=== PATIENT | female | born 1945 | race Caucasian/White ===

== ENCOUNTER 2020-11-04 22:28 | Emergency (ER) | payer MEDICARE ==
[~2020-11-04] VITALS: Ht 162.6 cm; Wt 70.3 kg
[2020-11-05 00:04] VITALS: BP 145/65
== END 2020-11-05 00:06 | disposition home or self-care (01) ==
LOC: EDH 22:28
DX: K52.9 Noninfective gastroenteritis and colitis, unspecified (principal); Z20.822 Contact with and (suspected) exposure to COVID-19; I10 Essential (primary) hypertension; E03.9 Hypothyroidism, unspecified
CPT/HCPCS: 87635; 99283; C9803

== ENCOUNTER 2022-07-27 21:41 | Emergency (ER) | payer MEDICARE ==
[~2022-07-27] VITALS: Ht 154.9 cm; Wt 72.1 kg
[2022-07-28 00:20] VITALS: BP 138/82
== END 2022-07-28 00:32 | disposition home or self-care (01) ==
LOC: EDH 21:41
DX: T16.2XXA Foreign body in left ear, initial encounter (principal); X58.XXXA Exposure to other specified factors, initial encounter
CPT/HCPCS: 99281